=== PATIENT | female | born 2000 | race Caucasian/White ===

== ENCOUNTER → 2020-11-24 | Outpatient (REF) | payer BC ==
[2020-11-24 17:17] LABS: ALT/SGPT 35 U/L (12-78); BILIRUBIN,TOTAL 0.2 MG/DL (0.2-1.0); CREATININE FOR GFR 0.54 MG/DL (0.55-1.30); GLOMERULAR FILTRATION RATE > 60.0 (>60); GLUCOSE CHALLENGE TEST 1 HOUR 115 MG/DL (LESS THAN 140); LDH LACTATE DEHYDROGENASE 237 U/L (84-246); URIC ACID 3.5 MG/DL (2.6-6.0)
[2020-11-24 17:24] LABS: HEMATOCRIT 37.9 % (36.0-47.0); HEMOGLOBIN 12.4 g/dl (12.0-15.5); MEAN CORPUSCULAR HGB CONC 32.7 g/dl (32.0-36.5); MEAN CORPUSCULAR VOLUME 88.6 fl (80.0-96.0); PLATELET COUNT, AUTOMATED 380 10^3/uL (150-450); RED BLOOD COUNT 4.28 10^6/uL (4.00-5.40); WHITE BLOOD COUNT 12.6 10^3/uL (4.0-10.0)
[2020-11-24 17:38] LABS: CREATININE,RANDOM URINE 59.5 MG/DL; TOTAL PROTEIN,RANDOM URINE 6.7 MG/DL (0.0-12.0)
[2020-11-24 18:05] LABS: HEPATITIS C VIRUS ABY INDEX 0.2 INDEX (<0.8); HIV 1&2 SCREEN CENTAUR NEGATIVE (NEGATIVE)
== END ==
LOC: M PLALAB 13:53
PROVIDERS: ATTEND Advanced Practice Midwife
DX: O99.281 Endocrine, nutritional and metabolic diseases complicating pregnancy, first trimester (principal); Z3A.00 Weeks of gestation of pregnancy not specified

== ENCOUNTER → 2021-02-03 | Outpatient (CLI) | payer BC ==
--- NOTE | 2021-02-03 15:24 | REP ---
INDICATION: ANATOMY. COMPARISON: None. TECHNIQUE: Multiple ultrasonographic images of the gravid uterus. FINDINGS: There is a single intrauterine gestation in the cephalic presentation. The placenta is posterior with grade 1 maturity. There is no previa. There is a three-vessel cord. heart rate is 138 beats per minute. Subjectively the amniotic fluid volume is normal. The cervix measures 4.1 cm length. The composite ultrasound gestational age by today's ultrasound is 22 weeks 3 days with an ADDIE of 06/06/2021. The LMP is unknown. Estimated weight is 497 g/1 lb, 1 oz. This is the 55th percentile for 22 weeks 1 day. The following anatomic structures are identified and are unremarkable: Cranium, cavum septum pellucidum, falx, intracranial ventricles, choroid plexus, orbits, upper lip, lungs, cardiac rhythm, four-chamber heart, diaphragm, stomach, abdominal wall, right and left kidneys, bladder, spine, right and left upper extremities, right left lower extremities and 3 vessel cord. Suboptimally demonstrated because of position are the cerebellum, cisterna magna, nuchal fold, facial profile and cardiac right left ventricular outflow tracts. IMPRESSION: There is a viable 22 week 3 day intrauterine gestation. Follow-up of the structures not optimally demonstrated might be considered. <Electronically signed by Kieran Avalos > 02/03/21 [id number]
== END ==
LOC: M WHC 13:54
PROVIDERS: ATTEND Advanced Practice Midwife
DX: Z34.02 Encounter for supervision of normal first pregnancy, second trimester (principal); Z3A.22 22 weeks gestation of pregnancy

== ENCOUNTER → 2021-03-01 | Outpatient (CLI) | payer BC ==
--- NOTE | 2021-03-02 08:42 | REP ---
INDICATION: F/U ANATOMY COMPARISON: 02/03/2021 TECHNIQUE: Transabdominal obstetrical ultrasound with color Doppler evaluation. FINDINGS: Examination demonstrates a single live intrauterine in breech presentation. motion is identified by technologist. Placenta is noted posterior and grade 1 without evidence for placenta previa or abruption. Amniotic fluid volume is normal. Cervix measures 4.6 cm in length and appears closed.. Selected gestational age: 25 weeks 6 days with ADDIE 06/08/2021. Gestational age by current measurements 27 weeks 0 days with ADDIE 05/31/2021. FHR equals 121 beats per minute. Estimated weight 1022 grams (86thpercentile). Anatomical assessment demonstrates normal structures including cerebellum, cisterna magna, facial profile, and four-chamber heart/ventricular outflow tracts. IMPRESSION: Single live intrauterine in breech presentation demonstrating appropriate interval growth. In conjunction with prior examination anatomical assessment is complete and normal. <Electronically signed by Gustavo Boone > 03/02/21 [id number]
== END ==
LOC: M WHC 13:49
PROVIDERS: ATTEND Advanced Practice Midwife
DX: Z36.2 Encounter for other antenatal screening follow-up (principal); Z3A.25 25 weeks gestation of pregnancy

== ENCOUNTER → 2021-03-01 | Outpatient (CLI) | payer BC ==
[2021-03-01 17:07] LABS: HEMATOCRIT 33.7 % (36.0-47.0); HEMOGLOBIN 11.1 g/dl (12.0-15.5); MEAN CORPUSCULAR HEMOGLOBIN 28.9 pg (27.0-33.0); MEAN CORPUSCULAR HGB CONC 32.9 g/dl (32.0-36.5); MEAN CORPUSCULAR VOLUME 87.8 fl (80.0-96.0); PLATELET COUNT, AUTOMATED 362 10^3/uL (150-450); RED BLOOD COUNT 3.84 10^6/uL (4.00-5.40); WHITE BLOOD COUNT 12.1 10^3/uL (4.0-10.0)
[2021-03-01 19:08] LABS: GC DNA AMPLIFICATION NEGATIVE (NEGATIVE)
== END ==
LOC: M PLALAB 13:44
PROVIDERS: ATTEND Advanced Practice Midwife
DX: Z36.89 Encounter for other specified antenatal screening (principal); Z3A.22 22 weeks gestation of pregnancy

== ENCOUNTER 2021-05-09 10:14 | Outpatient (CLI) | payer BC, OTHER ==
[~2021-05-09] VITALS: Ht 165.1 cm; Wt 151.5 kg
[2021-05-09 10:42] VITALS: BP 109/57
[2021-05-09] MEDS ORDERED: PRENTAB9 PO (10:45)
[2021-05-09] MEDS ORDERED: OMEP40CA4 PO (10:45)
[2021-05-09] MEDS ORDERED: HOME MED LIST COMPLETE! XX SCH (10:50)
[2021-05-09] MEDS ORDERED: ACETAMINOPHEN 500 MG TAB PO ONE (11:00)
[2021-05-09 11:31] LABS: HEMATOCRIT 32.3 % (36.0-47.0); HEMOGLOBIN 10.4 g/dl (12.0-15.5); MEAN CORPUSCULAR HEMOGLOBIN 26.2 pg (27.0-33.0); MEAN CORPUSCULAR HGB CONC 32.2 g/dl (32.0-36.5); MEAN CORPUSCULAR VOLUME 81.4 fl (80.0-96.0); PLATELET COUNT, AUTOMATED 429 10^3/uL (150-450); RED BLOOD COUNT 3.97 10^6/uL (4.00-5.40); WHITE BLOOD COUNT 13.1 10^3/uL (4.0-10.0)
[2021-05-09 12:13] LABS: BLOOD UREA NITROGEN 9 MG/DL (7-18); CARBON DIOXIDE LEVEL 22 mmol/L (20-29); CHLORIDE LEVEL 108 MEQ/L (98-107); CREATININE FOR GFR 0.52 MG/DL (0.55-1.30); GLOMERULAR FILTRATION RATE > 60.0 (>60); GLUCOSE, FASTING 90 MG/DL (70-100); POTASSIUM SERUM 4.2 MEQ/L (3.5-5.1); SODIUM LEVEL 138 MEQ/L (136-145)
[2021-05-09 12:14] LABS: ALBUMIN 2.4 GM/DL (3.2-5.2); ALT/SGPT 43 IU/L (0-32); BILIRUBIN,TOTAL 0.2 MG/DL (0.2-1.0); CALCIUM LEVEL 8.7 MG/DL (8.5-10.1); TOTAL PROTEIN 6.3 GM/DL (6.4-8.2)
[2021-05-09 12:24] VITALS: BP 113/56
[2021-05-09 13:26] LABS: TOTAL PROTEIN,RANDOM URINE 22.7 MG/DL (0.0-12.0)
--- NOTE | 2021-05-09 13:47 | IPNPDOC ---
Text Note Date of Service The patient was seen on 05/09/21. NOTE S: Pt is a 20yo at 35W5D EGA who presents with several complaints. She complains of pelvic pain, stating that it feels like somebody punched her in the pelvis. She also complains of a headache and blurry vision for the past 4 to 5 days. She had the charge nurse at her work take her blood pressure which per patient was read as 157/83. The patient has not taken anything for the pain and does not wear a belly band. She denies contractions leaking fluid or vaginal bleeding. O: BP109/57 HR98 T98.0 FHT 140 mod+accel no decel TOCO acontractile SVE deferred Notable labs: CBC wnl CMP wnl, mildly elevated LFTs but consistent with baseline Pr:Cr 0.122 A/P: Pt is a 20yo at 35w5d EGA who presents with several complaints including elevated blood pressure at work, headaches, blurry vision, and pelvic pain. - PO hydration - PEC labs - tylenol 1000mg PO once - belly band Dispo: NRBPs, normal PEC labs, reactive NST. Acontractile. Encouraged PO hydration, belly band and tylenol PRN. Plan to return to routine care on regularly scheduled appt 05/16. JUDY BROOKS MD May 09, 2021 11:09
[2021-05-09 13:50] VITALS: BP 132/68
== END 2021-05-09 14:00 | disposition home or self-care (01) ==
LOC: M LDO 10:14
PROVIDERS: ATTEND Obstetrics & Gynecology
DX: O26.893 Other specified pregnancy related conditions, third trimester (principal); O16.3 Unspecified maternal hypertension, third trimester; R51.9 Headache, unspecified; H53.30 Unspecified disorder of binocular vision; Z3A.35 35 weeks gestation of pregnancy
CPT/HCPCS: 36415; 59025; 80053; 82570; 84156; 85027; G0378; G0463

== ENCOUNTER → 2021-05-16 | Outpatient (REF) | payer OTHER, BC ==
[~2021-05-16] MED LIST: OMEP40CA4 PO; PRENTAB9 PO
== END ==
LOC: M SFHCWAGY 16:52
PROVIDERS: ATTEND Advanced Practice Midwife
DX: Z36.85 Encounter for antenatal screening for Streptococcus B (principal); Z3A.36 36 weeks gestation of pregnancy

== ENCOUNTER → 2021-05-18 | Outpatient (CLI) | payer BC, OTHER ==
--- NOTE | 2021-05-18 14:21 | REP ---
INDICATION: GROWTH SIZE DATE DISCREPANCY COMPARISON: 03/01/2021 TECHNIQUE: Transabdominal obstetrical ultrasound with color Doppler evaluation. FINDINGS: Examination demonstrates a single live intrauterine in cephalic presentation. motion is identified by technologist. Placenta is noted posterior and grade 1 without evidence for placenta previa or abruption. Amniotic fluid volume is normal. Cervix appears closed.. Selected gestational age: 37 weeks 0 days with ADDIE 06/08/2021. Gestational age by current measurements 38 weeks 6 days with ADDIE 05/26/2021. FHR equals 143 beats per minute. BPD: 9.6 cm at 39 weeks 1 day HC: 33.9 cm at 38 weeks 6 days AC: 35.3 cm at 39 weeks 2 days FL: 7.6 cm at 39 weeks 0 days HL: 6.5 cm at 37 weeks 5 days HC/AC: 0.96 Estimated weight 3703 grams (96thpercentile). TREVOR: 11.4 cm Umbilical artery SD ratio: 2.82 IMPRESSION: Single live advanced gestation in cephalic presentation demonstrating upper limits of normal growth and findings are essentially in keeping with prior examination. <Electronically signed by Gustavo Boone > 05/18/21 [id number]
== END ==
LOC: M WHC 12:49
PROVIDERS: ATTEND Advanced Practice Midwife
DX: O26.843 Uterine size-date discrepancy, third trimester (principal); Z3A.37 37 weeks gestation of pregnancy

== ENCOUNTER → 2021-05-31 | Outpatient (CLI) | payer BC, OTHER ==
[~2021-05-31] MED LIST changes: +ACET325C5 PO; +COLA100C5 PO; +IBUP80TA PO; +PERCOCET PO
== END ==
LOC: M RAD 15:16
PROVIDERS: ATTEND Advanced Practice Midwife
DX: O26.849 Uterine size-date discrepancy, unspecified trimester (principal); Z3A.36 36 weeks gestation of pregnancy

== ENCOUNTER 2021-06-04 12:32 | Inpatient (IN) | payer BC, OTHER ==
[~2021-06-04] VITALS: Ht 165.1 cm; Wt 155.0 kg
[2021-06-04] VITALS (12 sets, daily range): BP systolic 90–151; BP diastolic 52–78
[~2021-06-04 12:32] MED LIST changes: -ACET325C5 PO; -COLA100C5 PO; -IBUP80TA PO; -PERCOCET PO
[2021-06-04] MEDS ORDERED: ACET325C5 PO (13:40)
[2021-06-04] MEDS ORDERED: HOME MED LIST COMPLETE! XX SCH (13:45)
[2021-06-04 13:48] LABS: HEMATOCRIT 31.4 % (36.0-47.0); MEAN CORPUSCULAR HEMOGLOBIN 25.6 pg (27.0-33.0); MEAN CORPUSCULAR HGB CONC 31.8 g/dl (32.0-36.5); MEAN CORPUSCULAR VOLUME 80.5 fl (80.0-96.0); PLATELET COUNT, AUTOMATED 394 10^3/uL (150-450); WHITE BLOOD COUNT 10.9 10^3/uL (4.0-10.0)
[2021-06-04] MEDS: miSOPROStol 50MCG 1/2 TABLET SL SCH ×3 (14:01→22:34)
[2021-06-05] VITALS (44 sets, daily range): BP systolic 93–165; BP diastolic 52–107
[2021-06-05] MEDS: miSOPROStol 50MCG 1/2 TABLET SL SCH (02:46)
[2021-06-05] MEDS ORDERED: PROMETHAZINE INJ 25 MG/ML VIAL (J2550) IV ONE (10:00)
[2021-06-05] MEDS ORDERED: BUTORPHANOL 2 MG/ML INJ (J0595) IV ONE (10:00)
[2021-06-05] MEDS ORDERED: OXYTOCIN DRIP 30 UNITS in IV 1 EA IV SCH (10:00)
[2021-06-05] MEDS: LR 1,000 ML IV SCH ×2 (10:36→18:21)
[2021-06-05] MEDS ORDERED: FENTANYL 2MCG/ML ROPIVACAINE 0.2% IN 0.9% NACL 100ML IVBAG As Ordered ONE (13:08)
[2021-06-05] MEDS ORDERED: NALOXONE INJ 0.4MG/1ML VIAL (J2310 PER 1MG) IV PRN (13:50)
[2021-06-05] MEDS ORDERED: ONDANSETRON 4MG/2ML VIAL IV PRN (13:50)
[2021-06-05] MEDS ORDERED: ePHEDrine SULFATE 25 MG/5 ML(5MG/ML) SYRINGE IV PRN (13:50)
[2021-06-05] MEDS ORDERED: diphenhydrAMINE 50MG/ML VIAL (J1200) IV PRN (13:50)
[2021-06-05] MEDS ORDERED: REFRIGERATOR IV KEYS XX PRN (13:50)
[2021-06-05] MEDS ORDERED: EPIDURAL COMMENT XX SCH (13:50)
[2021-06-05] MEDS ORDERED: EPIDURAL/PCA KEYS XX PRN (13:50)
[2021-06-05] MEDS ORDERED: LACTATED RINGER'S 1000 ML IV PRN (13:50)
[2021-06-05] MEDS: FENTANYL/ROPIVACAINE/NACL BAG 100 ML EPIDURAL SCH ×2 (15:08→20:46)
[2021-06-06] VITALS (12 sets, daily range): BP systolic 92–134; BP diastolic 49–67
[2021-06-06] MEDS: LR 1,000 ML IV SCH ×4 (02:27→22:50)
[2021-06-06] MEDS: FENTANYL/ROPIVACAINE/NACL BAG 100 ML EPIDURAL SCH (02:33)
[2021-06-06] MEDS ORDERED: CARBOPROST TROMETHAMINE 250 MCG/ML AMP IM PRN (04:55)
[2021-06-06] MEDS ORDERED: BICITRA 30ML SOLN UDC PO ONE (04:55)
[2021-06-06] MEDS ORDERED: OXYTOCIN DRIP 30 UNITS in IV 1 EA IV PRN (04:55)
[2021-06-06] MEDS ORDERED: AZITHROMYCIN INJ 500 MG, VIAL MATE ADAPTER 1 EACH in NS 250 ML IV ONE (04:55)
[2021-06-06] MEDS ORDERED: METHYLERGONOVINE MALEATE 0.2 MG/ML VIAL (J2210) IM PRN (04:55)
[2021-06-06] MEDS ORDERED: ceFAZolin SOD 3 GM IV Place Holder IV ONE (04:55)
[2021-06-06] MEDS ORDERED: ceFAZolin SOD 2 GM in IV 1 EA IV ONE (05:00)
[2021-06-06] MEDS ORDERED: ceFAZolin SOD 1 GM in D5W MINI-BAG PLUS 50 ML IV ONE (05:00)
[2021-06-06] MEDS ORDERED: LIDOCAINE 2% W/EPINEPHRINE 20ML VIAL **PRES FREE As Ordered ONE (05:27)
[2021-06-06] MEDS ORDERED: OXYTOCIN 30 UNITS IN 0.9% NaCl 500ML IV BAG (J2590) As Ordered ONE ×2 (05:27→07:10)
[2021-06-06] MEDS ORDERED: LIDOCAINE 1% MDV 20ML VIAL As Ordered ONE (06:12)
[2021-06-06] MEDS ORDERED: ONDANSETRON 4MG/2ML VIAL As Ordered ONE (06:26)
[2021-06-06] MEDS ORDERED: fentaNYL 100 MCG/2 ML INJECTION As Ordered ONE (06:28)
[2021-06-06] MEDS ORDERED: MORPHINE PRES-FREE INJ 10 MG/10 ML VIAL (J2274) As Ordered ONE (06:30)
[2021-06-06] MEDS ORDERED: NALBUPHINE HCL 10 MG/ML AMP (J2300) IV PRN (06:40)
[2021-06-06] MEDS ORDERED: NALOXONE INJ 0.4MG/1ML VIAL (J2310 PER 1MG) IV PRN ×2 (06:40)
[2021-06-06] MEDS ORDERED: diphenhydrAMINE 50MG/ML VIAL (J1200) IV PRN (06:40)
[2021-06-06] MEDS ORDERED: ONDANSETRON 4MG/2ML VIAL IV PRN ×3 (06:40→07:55)
[2021-06-06] MEDS ORDERED: METOCLOPRAMIDE INJ 10MG/2ML VIAL (J2765 PER 1) IV PRN (06:40)
[2021-06-06] MEDS ORDERED: hydrALAZINE 20MG/ML 1ML VIAL (J0360 PER 20MG) As Ordered ONE (06:43)
[2021-06-06] MEDS ORDERED: KETOROLAC 60MG 2ML VIAL As Ordered ONE (06:45)
[2021-06-06] MEDS ORDERED: ESMOLOL INJ 100MG/10ML VIAL As Ordered ONE (06:50)
[2021-06-06] MEDS ORDERED: RHOGAM 300 MCG (1500 IU) INJ (J2790) IM SCH (07:00)
[2021-06-06] MEDS ORDERED: OXYTOCIN DRIP 30 UNITS in IV 1 EA IV SCH ×2 (07:00→09:00)
[2021-06-06] MEDS ORDERED: MOM 30ML SUSPENSION UDC PO PRN (07:00)
[2021-06-06] MEDS ORDERED: PERCOCET 5MG/325MG TAB PO PRN (07:00)
[2021-06-06] MEDS ORDERED: MEASLES,MUMPS,RUBELLA VACCINE INJ (MMR-II) (90707) SC SCH (07:00)
[2021-06-06] MEDS ORDERED: METHYLERGONOVINE MALEATE 0.2 MG TAB PO PRN (07:00)
[2021-06-06] MEDS ORDERED: ACETAMINOPHEN 1000MG 100ML IV BTL (OFIRMEV) (J0131 PER 10MG) As Ordered ONE (07:07)
[2021-06-06] MEDS ORDERED: COLA100C5 PO (07:20)
[2021-06-06] MEDS ORDERED: IBUP80TA PO (07:20)
[2021-06-06] MEDS ORDERED: PERCOCET PO (07:20)
[2021-06-06] MEDS ORDERED: OXYTOCIN DRIP 30 UNITS in IV 1 EA IV ONE (07:20)
[2021-06-06] MEDS ORDERED: fentaNYL 100 MCG/2 ML INJECTION IV PRN (07:55)
[2021-06-06] MEDS ORDERED: oxyCODONE 5MG TAB PO PRN (07:55)
[2021-06-06] MEDS: PRENATAL VITAMINS CHEWABLE TABLET PO SCH (09:00)
[2021-06-06] MEDS: KETOROLAC 30 MG/ML 1ML VIAL IV SCH ×2 (14:43→19:37)
[2021-06-06] MEDS: DOCUSATE SODIUM 100MG CAPSULE PO PRN (19:37)
[2021-06-06] MEDS: ENOXAPARIN 40MG/0.4ML SYRINGE (J1650 PER 10MG) SC SCH (21:42)
[2021-06-07] MEDS: KETOROLAC 30 MG/ML 1ML VIAL IV SCH (00:25)
[2021-06-07] MEDS: SIMETHICONE 80MG CHEW TAB PO PRN ×2 (00:29→20:26)
[2021-06-07 02:15] VITALS: BP 107/69
[2021-06-07 05:43] VITALS: BP 131/60
[2021-06-07] MEDS: PERCOCET 5MG/325MG TAB PO PRN ×3 (05:43→19:46)
[2021-06-07] MEDS: IBUPROFEN 800 MG TAB PO SCH ×2 (07:56→17:34)
[2021-06-07] MEDS: PRENATAL VITAMINS CHEWABLE TABLET PO SCH (07:56)
[2021-06-07] MEDS: ENOXAPARIN 40MG/0.4ML SYRINGE (J1650 PER 10MG) SC SCH ×2 (07:56→20:23)
[2021-06-07 08:48] LABS: HEMATOCRIT 27.5 % (36.0-47.0); HEMOGLOBIN 8.7 g/dl (12.0-15.5); MEAN CORPUSCULAR HEMOGLOBIN 25.4 pg (27.0-33.0); MEAN CORPUSCULAR HGB CONC 31.6 g/dl (32.0-36.5); MEAN CORPUSCULAR VOLUME 80.4 fl (80.0-96.0); PLATELET COUNT, AUTOMATED 367 10^3/uL (150-450); RED BLOOD COUNT 3.42 10^6/uL (4.00-5.40); WHITE BLOOD COUNT 15.9 10^3/uL (4.0-10.0)
[2021-06-07 10:12] VITALS: BP 119/58
[2021-06-07 14:00] VITALS: BP 128/72
[2021-06-07 17:46] VITALS: BP 129/70
[2021-06-07] MEDS: DOCUSATE SODIUM 100MG CAPSULE PO PRN (20:26)
[2021-06-07 22:00] VITALS: BP 100/57
[2021-06-08] MEDS: IBUPROFEN 800 MG TAB PO SCH ×2 (01:49→08:31)
[2021-06-08 02:00] VITALS: BP 110/59
[2021-06-08 06:00] VITALS: BP 130/77
[2021-06-08] MEDS: PRENATAL VITAMINS CHEWABLE TABLET PO SCH (08:30)
[2021-06-08] MEDS: PERCOCET 5MG/325MG TAB PO PRN ×2 (08:31→14:56)
[2021-06-08] MEDS: ENOXAPARIN 40MG/0.4ML SYRINGE (J1650 PER 10MG) SC SCH (08:31)
[2021-06-08 09:54] VITALS: BP 105/58
[2021-06-08 14:00] VITALS: BP 123/66
== END 2021-06-08 16:00 | disposition home or self-care (01) | DRG 540 ==
LOC: M LDI 12:32 → M OBS 06-06 09:20
PROVIDERS: ADMIT Specialist; ATTEND Obstetrics & Gynecology
PROC: 3E0P7GC Introduction of Other Therapeutic Substance into Female Reproductive, Via Natural or Artificial Opening (ICD-10-PCS; 2021-06-04)
PROC: 10907ZC Drainage of Amniotic Fluid, Therapeutic from Products of Conception, Via Natural or Artificial Opening (ICD-10-PCS; 2021-06-05)
PROC: 10D00Z1 Extraction of Products of Conception, Low, Open Approach (ICD-10-PCS; principal; 2021-06-06 05:00)
DX: O36.63X0 Maternal care for excessive fetal growth, third trimester, not applicable or unspecified (principal); Z3A.39 39 weeks gestation of pregnancy; Z37.0 Single live birth; O99.214 Obesity complicating childbirth; E66.9 Obesity, unspecified; O62.0 Primary inadequate contractions

== ENCOUNTER → 2023-03-18 | Outpatient (REF) | payer BC, OTHER ==
[~2023-03-18] MED LIST changes: +ACET325C5 PO; +COLA100C5 PO; +IBUP80TA PO; +PERCOCET PO
== END ==
LOC: M SFHCWAGY 18:11
PROVIDERS: ATTEND Nurse Practitioner Family
DX: Z12.4 Encounter for screening for malignant neoplasm of cervix (principal)